=== PATIENT | female | born 1955 | race Hispanic/Latino ===

== ENCOUNTER 2017-10-20 11:51 | Observation (INO) | payer MEDICAID ==
[~2017-10-20] VITALS: Ht 160 cm; Wt 69.8 kg
[~2017-10-20 11:51] MED LIST: ASPI-555 PO; CALC1TAB2 PO; LISI10TA7 PO; METF500T6 PO
[2017-10-20] MEDS ORDERED: SODIUM CHLORIDE 0.9% 1000ML 1,000 ML IV ONE (12:13)
[2017-10-20] MEDS ORDERED: ONDANSETRON HCL 4 MG/2 ML VIAL ONE (12:13)
[2017-10-20 12:32] LABS: APPEARANCE,URINE Cloudy (CLEAR); BILIRUBIN,URINE Negative (NEGATIVE); COLOR,URINE Yellow (YELLOW); GLUCOSE, URINE (UA) TRACE mg/dL (NEGATIVE); KETONES,URINE Negative (NEGATIVE); LEUKOCYTE ESTERASE ,URINE Small (NEGATIVE); NITRATE,URINE Negative (NEGATIVE); OCCULT BLOOD,URINE Small (NEGATIVE); PH,URINE 5.5 (5.0-8.0); PROTEIN,URINE POS 2+ (NEGATIVE)
[2017-10-20 12:37] LABS: BACTERIA,URINE Rare /HPF (None Seen); BASOPHILS % (AUTO) 0.7 % (0.0-5.0); HEMATOCRIT 38.7 % (36-48); LYMPHOCYTES % (AUTO) 18.4 % (21.0-51.0); MEAN CORPUSCULAR HGB CONC 34.1 g/dL (32.0-36.0); MUCUS,URINE Few LPF (None Seen); NEUTROPHILS % (AUTO) 75.9 % (40.0-77.0); PLATELET COUNT (AUTO) 158 K/uL (130-400); RBC,URINE 0-1 /HPF (0-1); RED BLOOD CELL COUNT(AUTO) 4.71 MIL/uL (4.00-5.50); RED CELL DISTRIBUTION WIDTH 13.6 % (11.0-15.5); SQUAMOUS EPITHELIAL CELL,UR Few /LPF (0-2); WHITE BLOOD COUNT (AUTO) 7.4 K/uL (4.8-10.8)
[2017-10-20 12:41] LABS: CREATININE 0.7 mg/dL (0.5-1.5)
[2017-10-20 12:45] LABS: INR 1.04 (0.85-1.15); PARTIAL THROMBOPLASTIN TIME 26.8 SEC (26.3-35.5); PROTHROMBIN TIME 10.9 SEC (9.6-11.6)
[2017-10-20 12:46] LABS: ALBUMIN 2.9 g/dL (3.5-5.0); BILIRUBIN,TOTAL 0.6 mg/dL (0.2-1.0); TOTAL PROTEIN, SERUM 7.9 g/dL (6.0-8.3)
[2017-10-20] MEDS ORDERED: SUCRALFATE 1 GM TABLET ONE (13:44)
[2017-10-20] MEDS ORDERED: KETOROLAC TROMETHAMINE 30MG/ML ONE (13:58)
[2017-10-20] MEDS ORDERED: GUAIFENESIN-DM 200/20 MG 10 ML PO PRN (15:45)
[2017-10-20] MEDS ORDERED: ACETAMINOPHEN 325 MG TAB PO PRN ×2 (15:45)
[2017-10-20 16:36] VITALS: BP 133/77
[2017-10-20] MEDS ORDERED: LORA10CA9 PO (16:57)
[2017-10-20] MEDS ORDERED: GLIP2.5T PO (16:57)
[2017-10-20] MEDS ORDERED: METF500T6 PO (16:57)
[2017-10-20] MEDS ORDERED: ASPI-1026 PO (16:57)
[2017-10-20] MEDS ORDERED: CEPH500B PO (16:59)
[2017-10-20] MEDS ORDERED: ONDA8TAB12 PO (16:59)
[2017-10-20] MEDS ORDERED: OMEP40CA37 PO (16:59)
[2017-10-20] MEDS: SODIUM CHLORIDE 0.9% 1000ML 1,000 ML IV SCH (17:03)
[2017-10-20] MEDS: ONDANSETRON HCL 4 MG/2 ML VIAL IV PRN (17:03)
[2017-10-20] MEDS ORDERED: INSU300I SQ (17:18)
[2017-10-20] MEDS ORDERED: ONDANSETRON ODT 4 MG TAB PO PRN (18:15)
[2017-10-20 19:00] VITALS: BP 149/72
[2017-10-20] MEDS: FAMOTIDINE/PF 20 MG/2 ML VIAL IV SCH (21:24)
[2017-10-20 23:00] VITALS: BP 161/79
[2017-10-21] VITALS (19 sets, daily range): BP systolic 122–156; BP diastolic 55–85
[2017-10-21] MEDS: SODIUM CHLORIDE 0.9% 1000ML 1,000 ML IV SCH ×3 (02:21→22:33)
[2017-10-21] MEDS ORDERED: HYDRALAZINE HCL 20 MG/ML VIAL IV PRN (03:00)
[2017-10-21] MEDS: LORATADINE 10 MG TABLET PO SCH (09:00)
[2017-10-21] MEDS: FAMOTIDINE/PF 20 MG/2 ML VIAL IV SCH ×2 (09:00→19:40)
[2017-10-21] MEDS: ASPIRIN 325 MG TABLET PO SCH (09:00)
[2017-10-21] MEDS ORDERED: PROPOFOL 10 MG/ML 20ML VIAL IV ONE (15:20)
[2017-10-21] MEDS: CEPHALEXIN 500 MG CAPSULE PO SCH (19:39)
[2017-10-21] MEDS: LISINOPRIL 10 MG TABLET PO SCH (19:40)
[2017-10-22] MEDS: ONDANSETRON HCL 4 MG/2 ML VIAL IV PRN (00:01)
[2017-10-22 03:00] VITALS: BP 127/61
[2017-10-22 07:30] VITALS: BP 133/95
[2017-10-22] MEDS ORDERED: PANTOPRAZOLE SODIUM 40 MG TABLET.DR PO SCH (09:00)
[2017-10-22] MEDS: LORATADINE 10 MG TABLET PO SCH (09:08)
[2017-10-22] MEDS: CEPHALEXIN 500 MG CAPSULE PO SCH (09:08)
[2017-10-22] MEDS: ASPIRIN 325 MG TABLET PO SCH (09:08)
[2017-10-22] MEDS: LISINOPRIL 10 MG TABLET PO SCH (09:08)
[2017-10-22] MEDS: FAMOTIDINE/PF 20 MG/2 ML VIAL IV SCH (09:08)
[2017-10-22] MEDS: SODIUM CHLORIDE 0.9% 1000ML 1,000 ML IV SCH ×2 (09:12→16:37)
[2017-10-22 11:00] VITALS: BP 143/73
[2017-10-22 16:00] VITALS: BP 127/53
[2017-10-22] MEDS ORDERED: PANT40TA25 PO (16:41)
== END 2017-10-22 17:23 | disposition home or self-care (01) ==
LOC: EDH 11:51 → EDHIP 11:52 → 3CH 16:32
PROVIDERS: ADMIT Family Medicine; ATTEND Family Medicine
DX: K21.0 Gastro-esophageal reflux disease with esophagitis (principal); K29.00 Acute gastritis without bleeding; K31.7 Polyp of stomach and duodenum; K22.8 Other specified diseases of esophagus; R12 Heartburn; R13.10 Dysphagia, unspecified; E11.9 Type 2 diabetes mellitus without complications; F41.9 Anxiety disorder, unspecified; R11.2 Nausea with vomiting, unspecified; R79.89 Other specified abnormal findings of blood chemistry; I10 Essential (primary) hypertension; Z80.0 Family history of malignant neoplasm of digestive organs; Z82.3 Family history of stroke; Z82.49 Family history of ischemic heart disease and other diseases of the circulatory system; Z83.3 Family history of diabetes mellitus
CPT/HCPCS: 36415 ×2; 43239; 43248; 74018; 76700; 80053; 81001; 82948 ×7; 85025; 85610; 85730; 86677; 87210; 88305; 88312; 96374; 96375; 96376 ×2; 99285; G0378 ×54; J1885; J2405 ×3; J2704; J3490 ×3; J7030 ×2

== ENCOUNTER 2018-01-02 22:22 | Emergency (ER) | payer MEDICAID ==
[~2018-01-02 22:22] MED LIST changes: +ASPI-1026 PO; -ASPI-555 PO; -CALC1TAB2 PO; +CEPH500B PO; +GLIP2.5T PO; +INSU300I SQ; +LORA10CA9 PO; +ONDA8TAB12 PO; +PANT40TA25 PO
[2018-01-02] MEDS ORDERED: PREDNISONE 20 MG TABLET ONE (23:07)
[2018-01-02] MEDS ORDERED: FAMOTIDINE 20MG TAB 20 MG TAB ONE (23:08)
[2018-01-02] MEDS ORDERED: DIPHENHYDRAMINE HCL 25 MG CAPSULE ONE (23:08)
== END 2018-01-03 01:10 | disposition home or self-care (01) ==
LOC: EDH 22:22
DX: T78.3XXA Angioneurotic edema, initial encounter (principal); E11.9 Type 2 diabetes mellitus without complications; I10 Essential (primary) hypertension; M19.90 Unspecified osteoarthritis, unspecified site; F41.9 Anxiety disorder, unspecified; Z90.710 Acquired absence of both cervix and uterus; Z88.8 Allergy status to other drugs, medicaments and biological substances
CPT/HCPCS: 99284; Q0163

== ENCOUNTER 2019-08-19 18:11 | Emergency (ER) | payer MEDICARE ==
[~2019-08-19 18:11] MED LIST changes: +METF-444 PO; -METF500T6 PO
[2019-08-19] MEDS ORDERED: IPRATROPIUM/ALBUTEROL SULFATE 3 ML SOLUTION IH ONE ×2 (18:53→22:00)
[2019-08-19] MEDS ORDERED: ACETAMINOPHEN EXTRA STRENGTH 500 MG TABLET ONE (19:26)
[2019-08-19] MEDS ORDERED: BENZONATATE 100 MG CAPSULE PO ONE (19:26)
[2019-08-19] MEDS ORDERED: SODIUM CHLORIDE 0.9% 1000ML 1,000 ML IV ONE (19:27)
[2019-08-19 19:34] LABS: BASOPHILS % (AUTO) 0.7 % (0.0-5.0); EOSINOPHILS % (AUTO) 1.6 % (0.0-8.0); HEMATOCRIT 34.7 % (36-48); MEAN CORPUSCULAR HEMOGLOBIN 28.3 pg (27.0-33.0); MEAN CORPUSCULAR HGB CONC 34.1 g/dL (32.0-36.0); MEAN CORPUSCULAR VOLUME 83.2 fL (79-99); MONOCYTES % (AUTO) 5.3 % (3.0-13.0); NEUTROPHILS % (AUTO) 63.4 % (40.0-77.0); NUCLEATED RED BLOOD CELLS 0.1 % (0.0-0.19); PLATELET COUNT (AUTO) 167 K/uL (130-400); RED BLOOD CELL COUNT(AUTO) 4.17 MIL/uL (4.00-5.50); RED CELL DISTRIBUTION WIDTH 13.1 % (11.0-15.5); WHITE BLOOD COUNT (AUTO) 9.2 K/uL (4.8-10.8)
[2019-08-19 19:44] LABS: APPEARANCE,URINE CLOUDY (CLEAR); BILIRUBIN,URINE NEGATIVE (NEGATIVE); COLOR,URINE YELLOW (YELLOW); GLUCOSE, URINE (UA) NEGATIVE (NEGATIVE); KETONES,URINE NEGATIVE (NEGATIVE); LEUKOCYTE ESTERASE ,URINE SMALL (NEGATIVE); NITRATE,URINE NEGATIVE (NEGATIVE); OCCULT BLOOD,URINE MODERATE (NEGATIVE); PROTEIN,URINE 100 mg/dL (NEGATIVE)
[2019-08-19 19:49] LABS: BACTERIA,URINE Many /HPF (None Seen)
[2019-08-19 19:50] LABS: MUCUS,URINE Few LPF (None Seen)
[2019-08-19 19:52] LABS: CREATININE 0.7 mg/dL (0.5-1.5); POTASSIUM 3.3 mmol/L (3.5-5.1)
[2019-08-19 19:58] LABS: ALBUMIN 2.6 g/dL (3.5-5.0); BILIRUBIN,DIRECT 0.1 mg/dL (0.0-0.3); BILIRUBIN,TOTAL 0.5 mg/dL (0.2-1.0); TOTAL PROTEIN, SERUM 7.5 g/dL (6.0-8.3)
[2019-08-19 20:08] LABS: B-TYPE NATRIURETIC PEPTIDE 34 pg/mL (0-100)
[2019-08-19] MEDS ORDERED: POTASSIUM CHLORIDE 20 MEQ ERTAB PO ONE (20:47)
== END 2019-08-19 22:36 | disposition home or self-care (01) ==
LOC: EDH 18:11
DX: J20.9 Acute bronchitis, unspecified (principal); F41.9 Anxiety disorder, unspecified; E11.9 Type 2 diabetes mellitus without complications; I10 Essential (primary) hypertension; M19.90 Unspecified osteoarthritis, unspecified site; Z88.8 Allergy status to other drugs, medicaments and biological substances; Z88.1 Allergy status to other antibiotic agents; Z90.710 Acquired absence of both cervix and uterus
CPT/HCPCS: 36415; 71046; 80048; 80076; 81001; 82550; 83605; 83880; 84484 ×2; 85025; 87804 ×2; 93005 ×2; 94640 ×2; 99285; J7030

== ENCOUNTER 2020-12-11 22:46 | Emergency (ER) | payer MEDICARE ==
[~2020-12-11 22:46] MED LIST changes: +LISI10TA24 PO; -LISI10TA7 PO; -PANT40TA25 PO; +PANT40TA54 PO
[2020-12-11 23:10] LABS: APPEARANCE,URINE Cloudy (CLEAR); BILIRUBIN,URINE Negative (NEGATIVE); COLOR,URINE Yellow (YELLOW); GLUCOSE, URINE (UA) Negative (NEGATIVE); KETONES,URINE Negative (NEGATIVE); LEUKOCYTE ESTERASE ,URINE Moderate (NEGATIVE); NITRATE,URINE Negative (NEGATIVE); OCCULT BLOOD,URINE Small (NEGATIVE); PH,URINE 6.5 (5.0-8.0); PROTEIN,URINE 300 mg/dL (NEGATIVE)
[2020-12-11 23:18] LABS: BASOPHILS % (AUTO) 0.4 % (0.0-5.0); EOSINOPHILS % (AUTO) 1.8 % (0.0-8.0); HEMATOCRIT 42.8 % (36-48); LYMPHOCYTES % (AUTO) 27.2 % (21.0-51.0); MEAN CORPUSCULAR HEMOGLOBIN 27.3 pg (27.0-33.0); MEAN CORPUSCULAR VOLUME 85.3 fL (79-99); MONOCYTES % (AUTO) 4.6 % (3.0-13.0); NEUTROPHILS % (AUTO) 65.6 % (40.0-77.0); PLATELET COUNT (AUTO) 191 K/uL (130-400); RED BLOOD CELL COUNT(AUTO) 5.02 MIL/uL (4.00-5.50); RED CELL DISTRIBUTION WIDTH 14.3 % (11.0-15.5)
[2020-12-11 23:24] LABS: BACTERIA,URINE Many /HPF (None Seen); RBC,URINE 0-1 /HPF (0-1); WBC,URINE TNTC /HPF (0-1)
[2020-12-11] MEDS ORDERED: ORPHENADRINE CITRATE 30 MG/ML ML ONE (23:27)
[2020-12-11] MEDS ORDERED: KETOROLAC TROMETHAMINE 15MG/ML ONE (23:28)
[2020-12-11] MEDS ORDERED: LIDOCAINE 5% TOPICAL PATCH TP ONE (23:28)
[2020-12-12 00:04] LABS: ALBUMIN 3.6 g/dL (3.5-5.0); BILIRUBIN,TOTAL 0.7 mg/dL (0.2-1.0); CREATININE 0.8 mg/dL (0.5-1.5); POTASSIUM 4.3 mmol/L (3.5-5.1); TOTAL PROTEIN, SERUM 8.6 g/dL (6.0-8.3)
[2020-12-12] MEDS ORDERED: ONDANSETRON HCL 4 MG/2 ML VIAL ONE ×2 (00:28→02:13)
[2020-12-12] MEDS ORDERED: DiphenhydrAMINE HCL 50 MG/ML VIAL ONE (00:28)
[2020-12-12] MEDS ORDERED: METOCLOPRAMIDE 10 MG/2 ML VIAL ONE (00:28)
[2020-12-12] MEDS ORDERED: CEFTRIAXONE SODIUM 1 GM ONE (00:29)
[2020-12-12] MEDS ORDERED: DIAZEPAM 5 MG/ML 2 ML SYG ONE (02:13)
== END 2020-12-12 02:57 | disposition home or self-care (01) ==
LOC: EDH 22:46
DX: H81.399 Other peripheral vertigo, unspecified ear (principal); E86.0 Dehydration; N39.0 Urinary tract infection, site not specified; F41.9 Anxiety disorder, unspecified; M19.90 Unspecified osteoarthritis, unspecified site; F32.9 Major depressive disorder, single episode, unspecified; E11.9 Type 2 diabetes mellitus without complications; I10 Essential (primary) hypertension; Z90.710 Acquired absence of both cervix and uterus; Z88.8 Allergy status to other drugs, medicaments and biological substances; Z88.1 Allergy status to other antibiotic agents
CPT/HCPCS: 36415; 70450; 71045; 80053; 81001; 84484; 85025; 87077; 87088; 87186; 93005; 96365; 96366; 96375; 99285; J0696; J1200; J1885; J2360; J2405 ×2; J2765; J3360

== ENCOUNTER 2023-02-07 11:14 | Day surgery (SDC) | payer MEDICARE ==
[~2023-02-07] VITALS: Ht 160 cm; Wt 61.7 kg
[~2023-02-07 11:14] MED LIST changes: -CEPH500B PO; -GLIP2.5T PO; -INSU300I SQ; -LORA10CA9 PO; +MECL-160 PO; -METF-444 PO; +OMEP20CA12 PO; -PANT40TA54 PO; +PHENERGAN GEL TP; +VITAMIN D
[2023-02-07 11:50] VITALS: BP 156/78
[2023-02-07] MEDS ORDERED: LIDOCAINE PF 100MG/5ML (2%) SYRINGE 5ML ONE (13:35)
[2023-02-07] MEDS ORDERED: PROPOFOL 10 MG/ML 20ML VIAL IV ONE ×2 (13:35→13:54)
[2023-02-07] MEDS ORDERED: 0.9%NACL 1000ML 1,000 ML IV ONE (14:17)
== END 2023-02-07 14:47 | disposition home or self-care (01) ==
LOC: DAH 11:14 → ENDO 11:14
PROVIDERS: ATTEND Internal Medicine
DX: K31.89 Other diseases of stomach and duodenum (principal); Z20.822 Contact with and (suspected) exposure to COVID-19; K21.00 Gastro-esophageal reflux disease with esophagitis, without bleeding; K29.60 Other gastritis without bleeding; R11.2 Nausea with vomiting, unspecified; R63.4 Abnormal weight loss; D3A.010 Benign carcinoid tumor of the duodenum; I10 Essential (primary) hypertension; M19.90 Unspecified osteoarthritis, unspecified site; E11.9 Type 2 diabetes mellitus without complications; F41.9 Anxiety disorder, unspecified; F32.A Depression, unspecified; Z80.0 Family history of malignant neoplasm of digestive organs; Z86.73 Personal history of transient ischemic attack (TIA), and cerebral infarction without residual deficits; Z86.010 Personal history of colon polyps; Z90.49 Acquired absence of other specified parts of digestive tract; Z98.890 Other specified postprocedural states; Z98.891 History of uterine scar from previous surgery; Z79.82 Long term (current) use of aspirin; Z68.24 Body mass index [BMI] 24.0-24.9, adult
CPT/HCPCS: 87426; 43237; 43236; 43239; J7030; J2001; J2704 ×2; A4620; A4215 ×2; A4223; A7002; A4222; A4221; A4663; A4216; A4606

== ENCOUNTER → 2023-08-10 | Outpatient (CLI) | payer MEDICARE ==
[~2023-08-10] MED LIST changes: -MECL-160 PO; +MECL-302 PO
== END | disposition home or self-care (01) ==
LOC: RAH 11:32
PROVIDERS: ATTEND Internal Medicine Cardiovascular Disease
DX: I70.8 Atherosclerosis of other arteries (principal); I73.9 Peripheral vascular disease, unspecified
CPT/HCPCS: 93925

== ENCOUNTER 2023-10-24 13:01 | Emergency (ER) | payer MEDICARE ==
[~2023-10-24] VITALS: Ht 160 cm; Wt 68.5 kg
[2023-10-24] MEDS ORDERED: LACTATED RINGERS 1000ML 1,000 ML IV ONE (13:30)
[2023-10-24] MEDS ORDERED: PROCHLORPERAZINE 10MG/2ML INJ IV ONE (13:30)
[2023-10-24 14:35] LABS: BASOPHILS # (AUTO) 0.05 K/uL (0.00-0.20); BASOPHILS % (AUTO) 0.6 % (0.0-5.0); EOSINOPHILS # (AUTO) 0.05 K/uL (0.00-0.70); EOSINOPHILS % (AUTO) 0.6 % (0.0-8.0); HEMATOCRIT 37.5 % (36-48); IMMATURE GRANULOCYTE ABSOLUTE 0.08 K/uL (0-1); LYMPHOCYTES # (AUTO) 1.3 K/uL (1.0-4.8); LYMPHOCYTES % (AUTO) 15.4 % (21.0-51.0); MEAN CORPUSCULAR HEMOGLOBIN 29.5 pg (27.0-33.0); MEAN CORPUSCULAR HGB CONC 33.9 g/dL (32.0-36.0); MEAN CORPUSCULAR VOLUME 87.2 fL (79-99); MONOCYTES # (AUTO) 0.3 K/uL (0.1-1.0); MONOCYTES % (AUTO) 3.3 % (3.0-13.0); NEUTROPHILS # (AUTO) 6.5 K/uL (1.8-7.7); NEUTROPHILS % (AUTO) 79.1 % (40.0-77.0); PLATELET COUNT (AUTO) 174 K/uL (130-400); RED CELL DISTRIBUTION WIDTH 14.1 % (11.0-15.5); WHITE BLOOD COUNT (AUTO) 8.2 K/uL (4.8-10.8)
[2023-10-24 14:47] LABS: CREATININE 0.9 mg/dL (0.5-1.5); POTASSIUM 3.9 mmol/L (3.5-5.1)
[2023-10-24 14:51] LABS: BILIRUBIN,TOTAL 0.5 mg/dL (0.2-1.0); TOTAL PROTEIN, SERUM 7.8 g/dL (6.0-8.3)
[2023-10-24] MEDS ORDERED: PROC-30 PO (17:44)
[2023-10-24 17:54] VITALS: BP 141/68; PULSE 78; RESP 18; O2SAT 98
== END 2023-10-24 18:07 | disposition home or self-care (01) ==
LOC: EDH 13:01
DX: R42 Dizziness and giddiness (principal); R11.2 Nausea with vomiting, unspecified; F41.9 Anxiety disorder, unspecified; E11.9 Type 2 diabetes mellitus without complications; E78.00 Pure hypercholesterolemia, unspecified; I10 Essential (primary) hypertension; Z79.82 Long term (current) use of aspirin; Z79.899 Other long term (current) drug therapy; Z88.1 Allergy status to other antibiotic agents
CPT/HCPCS: 99285; 96374; 70450; 96361; 80053; 85025; 36415; J7120; J0780

== ENCOUNTER → 2023-11-24 | Outpatient (CLI) | payer MEDICARE ==
[~2023-11-24] MED LIST changes: +PROC-30 PO
[2023-11-24 12:31] LABS: BASOPHILS # (AUTO) 0.04 K/uL (0.00-0.20); BASOPHILS % (AUTO) 0.6 % (0.0-5.0); EOSINOPHILS # (AUTO) 0.16 K/uL (0.00-0.70); EOSINOPHILS % (AUTO) 2.4 % (0.0-8.0); HEMATOCRIT 37.2 % (36-48); IMMATURE GRANULOCYTE ABSOLUTE 0.05 K/uL (0-1); LYMPHOCYTES # (AUTO) 1.8 K/uL (1.0-4.8); MEAN CORPUSCULAR HEMOGLOBIN 29.6 pg (27.0-33.0); MEAN CORPUSCULAR HGB CONC 33.1 g/dL (32.0-36.0); MEAN CORPUSCULAR VOLUME 89.6 fL (79-99); MONOCYTES # (AUTO) 0.4 K/uL (0.1-1.0); MONOCYTES % (AUTO) 6.4 % (3.0-13.0); NEUTROPHILS # (AUTO) 4.2 K/uL (1.8-7.7); NEUTROPHILS % (AUTO) 62.9 % (40.0-77.0); PLATELET COUNT (AUTO) 226 K/uL (130-400); RED BLOOD CELL COUNT(AUTO) 4.15 MIL/uL (4.00-5.50); RED CELL DISTRIBUTION WIDTH 13.5 % (11.0-15.5); WHITE BLOOD COUNT (AUTO) 6.7 K/uL (4.8-10.8)
[2023-11-24 12:55] LABS: ALBUMIN 3.1 g/dL (3.5-5.0); BILIRUBIN,TOTAL 0.7 mg/dL (0.2-1.0); POTASSIUM 3.9 mmol/L (3.5-5.1)
== END | disposition home or self-care (01) ==
LOC: LAB 11:14
PROVIDERS: ATTEND Physician Assistant
DX: I10 Essential (primary) hypertension (principal); I95.1 Orthostatic hypotension
CPT/HCPCS: 36415; 80053; 85025

== ENCOUNTER → 2023-12-20 | Outpatient (CLI) | payer MEDICARE ==
[~2023-12-20] MED LIST changes: +MECL-160 PO; -MECL-302 PO; -PROC-30 PO; +PROC10TA13 PO
== END | disposition home or self-care (01) ==
LOC: RAH 14:11
PROVIDERS: ATTEND Physician Assistant
DX: R06.00 Dyspnea, unspecified (principal)
CPT/HCPCS: 71046

== ENCOUNTER 2024-01-25 20:02 | Emergency (ER) | payer MEDICARE ==
[~2024-01-25] VITALS: Ht 165.1 cm; Wt 65.8 kg
[~2024-01-25 20:02] MED LIST changes: -MECL-160 PO; +MECL-302 PO; +PROC-30 PO; -PROC10TA13 PO
[2024-01-25 21:48] LABS: BASOPHILS # (AUTO) 0.05 K/uL (0.00-0.20); BASOPHILS % (AUTO) 0.8 % (0.0-5.0); EOSINOPHILS # (AUTO) 0.27 K/uL (0.00-0.70); EOSINOPHILS % (AUTO) 4.5 % (0.0-8.0); HEMATOCRIT 36.8 % (36-48); IMMATURE GRANULOCYTE ABSOLUTE 0.07 K/uL (0-1); LYMPHOCYTES # (AUTO) 1.8 K/uL (1.0-4.8); LYMPHOCYTES % (AUTO) 30.1 % (21.0-51.0); MEAN CORPUSCULAR HEMOGLOBIN 29.6 pg (27.0-33.0); MEAN CORPUSCULAR HGB CONC 33.4 g/dL (32.0-36.0); MEAN CORPUSCULAR VOLUME 88.7 fL (79-99); MONOCYTES # (AUTO) 0.4 K/uL (0.1-1.0); MONOCYTES % (AUTO) 6.2 % (3.0-13.0); NEUTROPHILS # (AUTO) 3.4 K/uL (1.8-7.7); NEUTROPHILS % (AUTO) 57.2 % (40.0-77.0); PLATELET COUNT (AUTO) 175 K/uL (130-400); RED BLOOD CELL COUNT(AUTO) 4.15 MIL/uL (4.00-5.50); RED CELL DISTRIBUTION WIDTH 12.7 % (11.0-15.5)
[2024-01-25 21:52] LABS: APPEARANCE,URINE CLOUDY (CLEAR); BILIRUBIN,URINE NEGATIVE (NEGATIVE); COLOR,URINE YELLOW (YELLOW); GLUCOSE, URINE (UA) NEGATIVE (NEGATIVE); KETONES,URINE 5 mg/dL (NEGATIVE); LEUKOCYTE ESTERASE ,URINE TRACE Leu/uL (NEGATIVE); NITRATE,URINE POSITIVE (NEGATIVE); OCCULT BLOOD,URINE TRACE-INTACT (NEGATIVE); PH,URINE 7.5 (5.0-8.0); PROTEIN,URINE 100 mg/dL (NEGATIVE)
[2024-01-25 21:53] LABS: ADD UA MICROSCOPIC YES
[2024-01-25 22:00] LABS: CREATININE 1.2 mg/dL (0.5-1.0); POTASSIUM 4.4 mmol/L (3.5-5.1)
[2024-01-25 22:01] LABS: BACTERIA,URINE Moderate /HPF (None Seen); SQUAMOUS EPITHELIAL CELL,UR Few /HPF (0-2)
[2024-01-25 22:10] LABS: ALBUMIN 2.9 g/dL (3.5-5.0); BILIRUBIN,TOTAL 0.3 mg/dL (0.2-1.0); TOTAL PROTEIN, SERUM 7.7 g/dL (6.0-8.3)
[2024-01-25] MEDS ORDERED: CEPH500B PO (22:26)
[2024-01-25 22:45] VITALS: BP 162/69; PULSE 87; RESP 16; O2SAT 100
== END 2024-01-25 22:47 | disposition home or self-care (01) ==
LOC: EDH 20:02
DX: N39.0 Urinary tract infection, site not specified (principal); F41.9 Anxiety disorder, unspecified; E11.9 Type 2 diabetes mellitus without complications; E78.00 Pure hypercholesterolemia, unspecified; I10 Essential (primary) hypertension; Z79.82 Long term (current) use of aspirin; Z79.899 Other long term (current) drug therapy; Z88.1 Allergy status to other antibiotic agents; Z90.710 Acquired absence of both cervix and uterus
CPT/HCPCS: 36415; 80053; 81001; 83690; 84484; 85025; 87088; 93005

== ENCOUNTER → 2024-01-30 | Outpatient (CLI) | payer MEDICARE ==
[~2024-01-30] MED LIST changes: +CEPH500B PO
== END | disposition home or self-care (01) ==
LOC: SHCH 11:05
PROVIDERS: ATTEND Internal Medicine Cardiovascular Disease
DX: I87.2 Venous insufficiency (chronic) (peripheral) (principal); I73.9 Peripheral vascular disease, unspecified; I80.201 Phlebitis and thrombophlebitis of unspecified deep vessels of right lower extremity
CPT/HCPCS: 93970

== ENCOUNTER 2024-09-27 02:18 | Emergency (ER) | payer MEDICARE ==
[~2024-09-27 02:18] MED LIST changes: +ONDA-245 PO; -ONDA8TAB12 PO
--- NOTE | 2024-09-27 02:32 | ERN ---
General Chief Complaint: Headache Stated Complaint: HEADACHE / NAUSEA/ VOMITTING Time Seen by MD: 02:24 Source: patient History of Present Illness Initial Comments PATIENT IS A 69-YEAR-OLD FEMALE COMING IN TO BE EVALUATED FOR OCCIPITAL HEADACHE NAUSEOUSNESS AND VOMITING. PER EMS PATIENT HAS BEEN HAVING ELEVATED BLOOD PRESSURE AND TODAY 30 MINUTES PRIOR TO ARRIVAL STARTED HAVING NAUSEOUSNESS AND STARTED VOMITING. NO OTHER CURRENT COMPLAINT. PATIENT HAS A HISTORY OF HYPERTENSION AND DIABETES. Allergies: Coded Allergies: diphenhydramine (Unverified Allergy, Unknown, HIVES, 09/14/17) levofloxacin (Unverified Allergy, Unknown, HIVES, 09/14/17) Home Meds Active Scripts Cephalexin Monohydrate (Keflex) 500 Mg Cap, 500 MG PO QID for 7 Days, #28 CAP Prov:ABEL WARREN MD 01/25/24 Prochlorperazine Maleate (Compazine) 10 Mg Tab, 10 MG PO Q8H for nausea/vomiting, #10 TAB Prov:RANDALL CRAWLEY MD 10/24/23 Reported Medications [Phenergan Gel] No Conflict Check, 12.5 MG TP QIDP PRN for NAUSEA 02/06/23 [Vitamin D] No Conflict Check 02/06/23 Omeprazole (Omeprazole) 20 Mg Capsule.dr, 20 MG PO DAILY, CAP 02/06/23 Meclizine HCl (Meclizine HCl) 25 Mg Tablet, 25 MG PO DAILY PRN for DIZZINESS, TAB 02/06/23 Ondansetron (Ondansetron Odt) 8 Mg Tab.rapdis, 8 MG PO TID PRN for NAUSEA/VOMITING, TAB 10/20/17 Aspirin (Aspirin) 325 Mg Tablet, 325 MG PO DAILY, TAB 10/20/17 Lisinopril (Lisinopril) 10 Mg Tablet, 10 MG PO DAILY, TAB 09/14/17 Past Medical History Past Medical History: Diabetes-Type II, High Cholesterol, Hypertension, TIA Medical History Other: VERTIGO Past Surgical History: Hysterectomy, Cholecystectomy, Surgical History Other: BILATERAL 5TH DIGIT AMPUTATION Social History Social History: Negative ROS Dictation CONSTITUTIONAL: NO CHILLS, NO FEVER, NO WEAKNESS, NO DIAPHORESIS, NO MALAISE. HEAD/FACE: NO SIGNS OF TRAUMA. EENT: NO EYE PAIN, NO BLURRED VISION, NO TEARING, NO DOUBLE VISION, NO EAR PAIN, NO EAR DISCHARGE, NO NOSE PAIN, NO NASAL CONGESTION, NO THROAT PAIN, NO THROAT SWELLING, NO MOUTH PAIN. RESPIRATORY: NO COUGH, NO ORTHOPNEA, NO SOB, NO STRIDOR, NO WHEEZING. CARDIOVASCULAR: NO CHEST PAIN, NO EDEMA, NO PALPITATIONS, NO SYNCOPE. GASTROINTESTINAL/ABDOMINAL: NO ABDOMINAL PAIN, NO CONSTIPATION, NO DIARRHEA, NO NAUSEA, NO VOMITING. GENITOURINARY: NO ABNORMAL DISCHARGE, NO DYSURIA, NO FREQUENT URINATION, NO HEMATURIA. NO COMPLAINTS OF PAIN IN THE GENITALS. MUSCULOSKELETAL: NO BACK PAIN, NO GOUT, NO JOINT PAIN, NO JOINT SWELLING, NO MUSCLE PAIN, NO MUSCLE STIFFNESS, NO NECK PAIN. INTEGUMENTARY: NO CHANGE IN COLOR, NO CHANGE IN HAIR/NAILS, NO DRYNESS, NO LESION, NO LUMPS, NO RASH. NEUROLOGICAL/PSYCH: NO ANXIETY, NOT DEPRESSED, NO EMOTIONAL PROBLEM, NO HEADACHE, NO NUMBNESS, NO PRE-EXISTING DEFICIT, NO HISTORY OF SEIZURES, NO TREMORS, NO WEAKNESS. HEMATOLOGIC/LYMPHATIC: NOT ANEMIC, NO HISTORY OF BLOOD CLOTS, NO APPARENT BLEEDING, NO BRUISING, GLANDS NOT SWOLLEN. ALL SYSTEMS NEGATIVE, EXCEPT NOTED. Physical Exam Physical Exam Dictation VITAL SIGNS: REVIEWED. GENERAL APPEARANCE: ALERT, ORIENTED X3, NO ACUTE DISTRESS, OBESE. HEAD AND FACE: NON-TRAUMATIC. EYES: PERRL, PINK CONJUNCTIVAS, EYELID NO TRAUMA, ANTERIOR CHAMBER CLEAR. EARS: PINNAS INTACT AND NO SIGNS OF TRAUMA OR ERYTHEMA. EAR CANALS CLEAR AND NO DISCHARGE. TMS NO ERYTHEMA. NOSE: NO DISCHARGE, NO BLEEDING. OROPHARYNX: MOUTH NORMAL, TEETH NO CARIES, TONGUE PINK. PHARYNX CLEAR, NO ERYTHEMA. TONSILS NO EXUDATES, NO ABSCESSES NOTED. MUCOUS MEMBRANE MOIST. NECK: SUPPLE, NON-TENDER, NO THYROMEGALY, NO MASSES, NO JVD, NO BRUITS. BREAST: DEFERRED. CHEST: NO TENDERNESS, NO CREPITUS, NO PARADOXICAL MOVEMENT, NO RETRACTIONS. LUNGS: CLEAR, WELL-VENTILATED, SYMMETRIC, NO RALES, NO WHEEZING, NO RHONCHI, NO STRIDOR, GOOD BREATH SOUNDS BILATERALLY. HEART: REGULAR RATE, REGULAR RHYTHM, NO MURMUR, NO GALLOPS. VASCULAR: NO PERIPHERAL EDEMA. ABDOMEN: SOFT, POSITIVE BOWEL SOUNDS, NONDISTENDED, NO GUARDING, NONTENDER, NO REBOUND, NO MASSES NO HEPATOMEGALY, NO SPLENOMEGALY, NO GARCIA'S SIGN, NO HERNIAS. RECTAL: DEFERRED. GENITAL: DEFERRED. NEUROLOGICAL: NORMAL SPEECH, GROSS MOTOR FUNCTION INTACT, GROSS SENSORY FUNCTION INTACT. MUSCULOSKELETAL: NECK NONTENDER, FULL RANGE OF MOTION, BACK NONTENDER, FULL RANGE OF MOTION. EXTREMITIES: NONTENDER, FULL RANGE OF MOTION. SKIN: COLOR PINK, DRY, NO TURGOR, NO RASH, NO LACERATIONS, NO ABRASIONS, NO CONTUSIONS. LYMPHATICS: DEFERRED. Results Laboratory and Microbiology Lab and Micro Result Laboratory Tests Test 09/27/24 03:00 09/27/24 03:30 09/27/24 06:03 White Blood Count 7.7 K/uL (4.8-10.8) Red Blood Count 4.40 MIL/uL (4.00-5.50) Hemoglobin 12.6 g/dL (12.0-16.0) Hematocrit 37.5 % (36-48) Mean Corpuscular Volume 85.2 fL (79-99) Mean Corpuscular Hemoglobin 28.6 pg (27.0-33.0) Mean Corpuscular Hemoglobin Concent 33.6 g/dL (32.0-36.0) Red Cell Distribution Width 13.2 % (11.0-15.5) Platelet Count 176 K/uL (130-400) Mean Platelet Volume 10.6 fL (7.5-10.5) H Immature Granulocyte % (Auto) 1.8 % (0-1) H Neutrophils (%) (Auto) 62.9 % (40.0-77.0) Lymphocytes (%) (Auto) 26.5 % (21.0-51.0) Monocytes (%) (Auto) 5.5 % (3.0-13.0) Eosinophils (%) (Auto) 2.5 % (0.0-8.0) Basophils (%) (Auto) 0.8 % (0.0-5.0) Neutrophils # (Auto) 4.9 K/uL (1.8-7.7) Lymphocytes # (Auto) 2.0 K/uL (1.0-4.8) Monocytes # (Auto) 0.4 K/uL (0.1-1.0) Eosinophils # (Auto) 0.19 K/uL (0.00-0.70) Basophils # (Auto) 0.06 K/uL (0.00-0.20) Absolute Immature Granulocyte (auto 0.14 K/uL (0-1) Nucleated Red Blood Cells 0.0 % (0.0-0.19) Sodium Level 143 mmol/L (136-145) Potassium Level 3.4 mmol/L (3.5-5.1) L Chloride Level 105 mmol/L (101-111) Carbon Dioxide Level 28 mmol/L (21-32) Blood Urea Nitrogen 23 mg/dL (7-18) H Creatinine 1.1 mg/dL (0.5-1.0) H Glomerular Filtration Rate Calc 54 mL/min (>90) Random Glucose 189 mg/dL (70-105) H Total Calcium 9.1 mg/dL (8.5-10.1) Troponin I High Sensitivity 8 ng/L (4-50) Influenza Type A Antigen Negative For Type A Influenza Type B Antigen Negative For Type B SARS-CoV-2 Antigen (Rapid) PRESUMPTIVE NEGATIVE Urine Color COLORLESS (YELLOW) Urine Appearance CLEAR (CLEAR) Urine pH 7.5 (5.0-8.0) Urine Specific [place] 1.009 (1.001-1.031) Urine Protein 200 mg/dL (NEGATIVE) H Urine Glucose (UA) TRACE mg/dL (NEGATIVE) H Urine Ketones NEGATIVE mg/dL (NEGATIVE) Urine Occult Blood MODERATE (NEGATIVE) H Urine Nitrate NEGATIVE (NEGATIVE) Urine Bilirubin NEGATIVE mg/dL (NEGATIVE) Urine Urobilinogen 0.2 mg/dL (0.2-1.0) Urine Leukocyte Esterase NEGATIVE [place]/uL Urine RBC 0-1 /HPF (0-1) Urine WBC 0-1 /HPF (0-1) Urine Bacteria RARE /HPF (None Seen) Urine Opiates Screen NEGATIVE (NEGATIVE) Urine Barbiturates Screen NEGATIVE (NEGATIVE) Urine Phencyclidine Screen NEGATIVE (NEGATIVE) Urine Amphetamines Screen NEGATIVE (NEGATIVE) Urine Benzodiazepines Screen NEGATIVE (NEGATIVE) Urine Cocaine Screen NEGATIVE (NEGATIVE) Urine Marijuana (THC) Screen NEGATIVE (NEGATIVE) Labs Reviewed?: Yes EKG/XRAY/US/CT/MRI CT Scan Comment CT head without contrast Comparison made to prior Exam dated 10/24/2023 No evidence of acute intracranial hemorrhage, no mass effect, no midline shift, ventricular volumes are unchanged and within normal limits for age, no abnormal extra fluid collection, moderate small vessel ischemic disease, no acute osseous abnormality, no fluid levels are seen within the paranasal sinuses MDM MDM: DIFFERENTIAL DIAGNOSIS: HEADACHE, TENSION HEADACHE, HYPERTENSION, chronic vertigo Patient is a 69-year-old female coming in to be evaluated for nauseousness and vomiting. Patient does have extensive history of vertigo causing vomiting episodes. Laboratory workup negative for acute findings. Per family member at bedside patient frequently presents with nauseousness and vomiting secondary to vertigo. Patient posterior with IV fluids and Zofran states she feels much better. ED Course Orders Procedure Category Date Status Time Cbc With Differential LAB 09/27/24 Complete 02:24 Basic Metabolic Panel LAB 09/27/24 Complete 02:24 Urinalysis LAB 09/27/24 Complete W/Microscopic 02:24 Troponin I High LAB 09/27/24 Complete Sensitivity 02:29 12 Lead Ekg Tracing- EKG 09/27/24 Logged Technical 02:29 0.9%Nacl 1000ml (Ns PHA 09/27/24 Complete 1000ml) 02:30 Prochlorperazine PHA 09/27/24 Complete 10mg/2ml Inj 02:30 Ct Head/Brain W/O CT 09/27/24 Taken Contrast 02:29 Drug Screen Urine LAB 09/27/24 Complete 02:50 12 Lead Ekg Tracing- EKG 09/27/24 Logged Technical 02:50 Clonidine Hcl 0.2 Mg PHA 09/27/24 Complete Tablet (Catapres 0. 03:30 Ondansetron 4mg Inj PHA 09/27/24 Complete (Zofran 4mg Inj) 03:30 Covid19 (Sars Antigen LAB 09/27/24 Complete Rapid) 03:33 Influenza Type A & B, LAB 09/27/24 Complete Rapid 03:33 Ondansetron 4mg Inj PHA 09/27/24 Complete (Zofran 4mg Inj) 03:28 Acetaminophen 500mg PHA 09/27/24 Complete Tab (Tylenol 500mg T 04:30 Ondansetron 4mg Inj PHA 09/27/24 Complete (Zofran 4mg Inj) 04:30 Potassium Bicarb/Cit PHA 09/27/24 Complete Ac 25meq (K-Lyte Ta 06:00 Current Medications Medications (Trade) Dose Ordered Sig/Alex Route PRN Reason Start Time Stop Time Status Last Admin Dose Admin Acetaminophen (TYLenol 500MG TAB) 1,000 mg ONCE ONCE PO 1/3/25 04:30 09/27/24 04:31 DC 09/27/24 06:01 Clonidine HCl (CATApres 0.2 MG TAB) 0.2 mg ONCE ONCE PO 09/27/24 03:30 09/27/24 03:31 DC Ondansetron HCl (zoFRAN 4MG INJ) 4 mg ONCE ONCE IVP 09/27/24 03:30 09/27/24 03:31 DC 09/27/24 03:31 Ondansetron HCl (zoFRAN 4MG INJ) 4 mg ONCE ONCE IVP 09/27/24 04:30 09/27/24 04:31 DC 09/27/24 04:40 Ondansetron HCl (zoFRAN 4MG INJ) 4 mg STK-MED ONCE .ROUTE 09/27/24 03:28 09/27/24 03:34 DC Potassium Bicarbonate (K-Lyte Tablet Eff 25 Meq Tablet.eff) 50 meq ONCE ONCE PO 09/27/24 06:00 09/27/24 06:01 DC 09/27/24 06:01 Prochlorperazine Edisylate (Compazine 10mg/ 2ml Inj) 10 mg ONCE ONCE IV 09/27/24 02:30 09/27/24 02:31 DC 09/27/24 03:14 Sodium Chloride 1,000 ml @ 0 mls/hr ONCE ONCE IV 09/27/24 02:30 09/27/24 02:31 DC 09/27/24 03:14 Vital Signs Date Time Temp Pulse Resp B/P (MAP) Pulse Ox O2 Delivery O2 Flow Rate FiO2 09/27/24 05:07 82 18 135/69 99 Room Air* 0 21 09/27/24 03:07 98.2 112 18 238/113 98 Room Air* 0 21 09/27/24 02:47 98.1 86 16 222/98 94 Room Air 0 DX & DISP Disposition: Discharge Departure Impression: Primary Impression: Nausea & vomiting Additional Impression: Vertigo Condition: Stable Scripts Ondansetron (Ondansetron Odt) 4 Mg Tab.rapdis 4 MG PO BID PRN for NAUSEA/VOMITING for 4 Days, #8 TAB Prov: ABEL WARREN MD 09/27/24 Additional Instructions: FOLLOW-UP WITH PRIMARY CARE PROVIDER IN 1 TO 2 DAYS. TAKE MEDICATIONS DIRECTED HERE IN THE EMERGENCY ROOM. OKAY TO CONTINUE HOME MEDICATIONS UNLESS OTHERWISE DISCUSSED DURING YOUR VISIT IN THE EMERGENCY ROOM TODAY. RETURN TO YOUR NEAREST EMERGENCY ROOM IF SYMPTOMS WORSEN OR IF THERE IS NO IMPROVEMENT. CALL 911 IF YOU NEED IMMEDIATE ASSISTANCE. TAKE TYLENOL [id number] NEEDED AND IF NO CONTRAINDICATIONS ARE PRESENT. INCREASE ORAL HYDRATION. A WOUND CULTURE OR URINE CULTURE WAS ORDERED HERE IN THE EMERGENCY ROOM DEPARTMENT PLEASE FOLLOW-UP WITH PRIMARY CARE PROVIDER AND ADVISE THEM TO GET REPEAT PORTS FROM OUR FACILITY. IF YOU HAD ANY [place]IN[place] WRAP/SPLINTS THAT WERE APPLIED HERE, PLEASE DO NOT REMOVE THEM UNTIL YOU SEE YOUR PRIMARY CARE OR SPECIALTY. Referrals: Referrals: DANIELE GRANT (PCP) MERCEDES ORTIZ III, MD Time of Disposition: 06:36 ABEL WARREN MD Sep 27, 2024 02:32
[2024-09-27 03:07] VITALS: TEMP 98.2
[2024-09-27 03:13] LABS: BASOPHILS # (AUTO) 0.06 K/uL (0.00-0.20); BASOPHILS % (AUTO) 0.8 % (0.0-5.0); EOSINOPHILS # (AUTO) 0.19 K/uL (0.00-0.70); EOSINOPHILS % (AUTO) 2.5 % (0.0-8.0); HEMATOCRIT 37.5 % (36-48); IMMATURE GRANULOCYTE ABSOLUTE 0.14 K/uL (0-1); LYMPHOCYTES % (AUTO) 26.5 % (21.0-51.0); MEAN CORPUSCULAR HEMOGLOBIN 28.6 pg (27.0-33.0); MEAN CORPUSCULAR HGB CONC 33.6 g/dL (32.0-36.0); MEAN CORPUSCULAR VOLUME 85.2 fL (79-99); MONOCYTES # (AUTO) 0.4 K/uL (0.1-1.0); MONOCYTES % (AUTO) 5.5 % (3.0-13.0); NEUTROPHILS # (AUTO) 4.9 K/uL (1.8-7.7); NEUTROPHILS % (AUTO) 62.9 % (40.0-77.0); PLATELET COUNT (AUTO) 176 K/uL (130-400); RED CELL DISTRIBUTION WIDTH 13.2 % (11.0-15.5); WHITE BLOOD COUNT (AUTO) 7.7 K/uL (4.8-10.8)
[2024-09-27] MEDS: PROCHLORPERAZINE 10MG/2ML INJ IV ONE (03:14)
[2024-09-27] MEDS: 0.9%NACL 1000ML 1,000 ML IV ONE (03:14)
[2024-09-27] MEDS: cloNIDine HCL 0.2 MG TABLET PO ONE (03:14)
[2024-09-27] MEDS: ondanSETRON 4MG INJ IVP ONE ×2 (03:31→04:40)
[2024-09-27] MEDS: ondanSETRON 4MG INJ ONE (03:36)
[2024-09-27 03:39] LABS: CREATININE 1.1 mg/dL (0.5-1.0); POTASSIUM 3.4 mmol/L (3.5-5.1)
[2024-09-27 04:02] LABS: COVID19 (SARS ANTIGEN RAPID) PRESUMPTIVE NEGATIVE (NEGATIVE); INFLUENZA TYPE A Negative For Type A (NEGATIVE); INFLUENZA TYPE B Negative For Type B (NEGATIVE)
[2024-09-27] MEDS: PoTASSium BIcarbonate/CIT AC 25 MEQ TABLET.EFF PO ONE (06:01)
[2024-09-27] MEDS: acetaMINOPHEN 500 MG TABLET PO ONE (06:01)
[2024-09-27 06:25] LABS: APPEARANCE,URINE CLEAR (CLEAR); BILIRUBIN,URINE NEGATIVE (NEGATIVE); COLOR,URINE COLORLESS (YELLOW); GLUCOSE, URINE (UA) TRACE mg/dL (NEGATIVE); KETONES,URINE NEGATIVE (NEGATIVE); LEUKOCYTE ESTERASE ,URINE NEGATIVE Leu/uL (NEGATIVE); NITRATE,URINE NEGATIVE (NEGATIVE); OCCULT BLOOD,URINE MODERATE (NEGATIVE); PH,URINE 7.5 (5.0-8.0); PROTEIN,URINE 200 mg/dL (NEGATIVE); UROBILINOGEN,URINE 0.2 mg/dL (0.2-1.0)
[2024-09-27 06:31] LABS: BACTERIA,URINE RARE /HPF (None Seen); RBC,URINE 0-1 /HPF (0-1); WBC,URINE 0-1 /HPF (0-1)
[2024-09-27 06:34] LABS: AMPHET/METH SCREEN,URINE NEGATIVE (NEGATIVE); BARBITURATE SCREEN, URINE NEGATIVE (NEGATIVE); BENZODIAZEPINES SCREEN,URINE NEGATIVE (NEGATIVE); CANNABINOID SCREEN,URINE NEGATIVE (NEGATIVE); COCAINE SCREEN,URINE NEGATIVE (NEGATIVE); OPIATE SCREEN,URINE NEGATIVE (NEGATIVE); PHENCYCLIDINE SCREEN,URINE NEGATIVE (NEGATIVE)
[2024-09-27] MEDS ORDERED: ONDA-243 PO (06:37)
[2024-09-27 06:45] VITALS: BP 168/73; PULSE 78; RESP 18; O2SAT 99
[2024-09-27] MEDS ORDERED: MECL-226 PO (06:48)
--- NOTE | 2024-09-27 08:25 | HMCIMG ---
Exam: NONCONTRAST CT BRAIN REASON: OCCIPITAL HEADACHE. COMPARISON: Exam: NONCONTRAST CT BRAIN TECHNIQUE: Images are obtained from vertex to the skull base. The exam was performed without IV contrast. FINDINGS: There are normal-appearing ventricles and sulci There is decreased attenuation in the deep central white matter. These findings are consistent with atrophy. There are no acute appearing focal parenchymal lesions. There is no evidence of mass, intracranial hemorrhage or acute stroke. Posterior fossa and brainstem structures appear unremarkable. There are no abnormal fluid collections. Extra cranial soft tissues appear unremarkable as well. IMPRESSION: 1. Atrophy, mild, no acute finding.
== END 2024-09-27 07:03 | disposition home or self-care (01) ==
LOC: EDH 02:18
DX: R42 Dizziness and giddiness (principal); R11.2 Nausea with vomiting, unspecified; E11.9 Type 2 diabetes mellitus without complications; E78.00 Pure hypercholesterolemia, unspecified; I10 Essential (primary) hypertension; Z20.822 Contact with and (suspected) exposure to COVID-19; Z79.82 Long term (current) use of aspirin; Z79.899 Other long term (current) drug therapy; Z86.73 Personal history of transient ischemic attack (TIA), and cerebral infarction without residual deficits; Z88.1 Allergy status to other antibiotic agents; Z90.49 Acquired absence of other specified parts of digestive tract; Z90.710 Acquired absence of both cervix and uterus
CPT/HCPCS: 99285; 96374; 96361; 70450; 96375; 87426; 84484; 80048; 80305; 85025; 87804 ×2; 36415; 96376; 81001; J7030; J0780; J2405 ×2

== ENCOUNTER 2025-01-21 08:21 | Day surgery (SDC) | payer MEDICARE ==
[~2025-01-21] VITALS: Ht 157.5 cm; Wt 70.3 kg
[2025-01-21] VITALS (10 sets, daily range): BP systolic 101–183; BP diastolic 45–65; PULSE 64–85; RESP 15–18; TEMP 97.1–97.9
[~2025-01-21 08:21] MED LIST changes: +INDOMETHACIN 100 MG SUPP.RECT RC ONE; +MECL-226 PO; +ONDA-243 PO
[2025-01-21] MEDS ORDERED: MAGN400T51 PO (09:12)
[2025-01-21] MEDS ORDERED: OMEP40CA21 PO (09:12)
[2025-01-21] MEDS ORDERED: DAPA5TAB PO (09:12)
[2025-01-21] MEDS ORDERED: LISI20TA24 PO (09:12)
[2025-01-21] MEDS ORDERED: ASPI-1197 PO (09:12)
[2025-01-21] MEDS ORDERED: ATOR20TA65 PO (09:12)
[2025-01-21] MEDS ORDERED: ACET-66 PO (09:12)
[2025-01-21] MEDS ORDERED: NITR100C4 PO (09:12)
[2025-01-21] MEDS ORDERED: KETO5DRO40 OD (09:13)
[2025-01-21] MEDS: 0.9%NACL 1000ML 1,000 ML IV ONE (09:18)
[2025-01-21] MEDS ORDERED: proPOFol 10 MG/ML 20ML VIAL IV ONE (10:27)
[2025-01-21] MEDS ORDERED: LIDOCAINE HCL-MPF 2% 10ML AMP IJ ONE (10:27)
[2025-01-21] MEDS ORDERED: SIMETHICONE 40 MG/0.6 ML ML ONE (10:37)
== END 2025-01-21 12:00 | disposition home or self-care (01) ==
LOC: DAH 08:21 → ENDO 08:21
PROVIDERS: ATTEND Internal Medicine Gastroenterology
DX: R93.2 Abnormal findings on diagnostic imaging of liver and biliary tract (principal); K29.70 Gastritis, unspecified, without bleeding; B96.81 Helicobacter pylori [H. pylori] as the cause of diseases classified elsewhere; K31.89 Other diseases of stomach and duodenum; K80.50 Calculus of bile duct without cholangitis or cholecystitis without obstruction; K86.89 Other specified diseases of pancreas; K83.8 Other specified diseases of biliary tract; K31.A11 Gastric intestinal metaplasia without dysplasia, involving the antrum; D12.6 Benign neoplasm of colon, unspecified; D3A.010 Benign carcinoid tumor of the duodenum; K57.90 Diverticulosis of intestine, part unspecified, without perforation or abscess without bleeding; K21.00 Gastro-esophageal reflux disease with esophagitis, without bleeding; K43.9 Ventral hernia without obstruction or gangrene; R10.11 Right upper quadrant pain; I10 Essential (primary) hypertension; K44.9 Diaphragmatic hernia without obstruction or gangrene; F41.9 Anxiety disorder, unspecified; F32.A Depression, unspecified; E11.9 Type 2 diabetes mellitus without complications; E78.00 Pure hypercholesterolemia, unspecified; M19.90 Unspecified osteoarthritis, unspecified site; Z79.899 Other long term (current) drug therapy; Z79.82 Long term (current) use of aspirin; Z79.84 Long term (current) use of oral hypoglycemic drugs; Z86.73 Personal history of transient ischemic attack (TIA), and cerebral infarction without residual deficits; Z90.710 Acquired absence of both cervix and uterus; Z98.891 History of uterine scar from previous surgery; Z90.49 Acquired absence of other specified parts of digestive tract; Z98.890 Other specified postprocedural states; Z80.0 Family history of malignant neoplasm of digestive organs; Z88.8 Allergy status to other drugs, medicaments and biological substances; Z87.898 Personal history of other specified conditions
CPT/HCPCS: 43259; 82948 ×2; 43239; J7030; J2704; J3490; A4620; A4215; 43237; 45378